=== PATIENT | female | born 1990 | race African-American/Black ===

== ENCOUNTER → 2022-01-31 | Emergency (ER) | payer OTHER ==
[2022-01-31 11:01] LABS: HEMOGLOBIN 13.4 gm/dl (12.3-15.3); RED BLOOD COUNT 4.55 M/UL (4.00-5.10); WHITE BLOOD COUNT 4.5 K/UL (4.5-11.0)
== END | disposition home or self-care (01) ==
LOC: ER1 09:10
PROVIDERS: Emergency Medicine
DX: O20.0 Threatened abortion (principal); Z3A.01 Less than 8 weeks gestation of pregnancy
CPT/HCPCS: 84702; 85025; 86900; 86901; 99284

== ENCOUNTER 2022-02-04 19:58 | Emergency (ER) | payer OTHER ==
[2022-02-04 21:36] LABS: HEMOGLOBIN 12.4 gm/dl (12.3-15.3); RED BLOOD COUNT 4.18 M/UL (4.00-5.10); WHITE BLOOD COUNT 4.9 K/UL (4.5-11.0)
[2022-02-04 21:59] LABS: BUN/CREATININE RATIO 14 (0-10)
== END 2022-02-04 23:30 | disposition home or self-care (01) ==
LOC: ER1 19:58
PROVIDERS: Physician Assistant Medical
DX: O99.891 Other specified diseases and conditions complicating pregnancy (principal); R10.9 Unspecified abdominal pain; O99.331 Smoking (tobacco) complicating pregnancy, first trimester; F17.210 Nicotine dependence, cigarettes, uncomplicated; Z88.6 Allergy status to analgesic agent; Z3A.08 8 weeks gestation of pregnancy
CPT/HCPCS: 76817; 80053; 81001; 84702; 85025; 99284